=== PATIENT | male | born 1980 | race Caucasian/White ===

== ENCOUNTER 2018-07-11 21:26 | Emergency (ER) | payer MEDICAID, OTHER | END 2018-07-11 23:57 | disposition home or self-care (01) | LOC: FTE 21:26 | DX: Z48.01 Encounter for change or removal of surgical wound dressing (principal); Z87.891 Personal history of nicotine dependence | CPT/HCPCS: 99281; Z7502 ==

== ENCOUNTER 2018-07-15 15:31 | Emergency (ER) | payer MEDICAID | END 2018-07-15 19:28 | disposition home or self-care (01) | LOC: FTE 15:31 | DX: Z48.02 Encounter for removal of sutures (principal); F17.210 Nicotine dependence, cigarettes, uncomplicated | CPT/HCPCS: 99281; Z7502 ==